=== PATIENT | male | born 2000 | race Caucasian/White ===

== ENCOUNTER 2023-03-17 19:09 | Emergency (ER) | payer MEDICAID, SELFPAY ==
[2023-03-17 19:14] VITALS: BP 135/91; PULSE 130; RESP 24; TEMP 36.9; O2SAT 97; BMI 36.6
--- NOTE | 2023-03-17 19:26 | ED_ITS ---
HPI - Abdominal Pain General Chief Complaint: Abdominal Pain Stated Complaint: Abdominal Pain Time Seen by Provider: 03/17/23 19:18 Source: patient Mode of arrival: walk-in Limitations: no limitations History of Present Illness HPI narrative: 22-year-old male presents to the emergency department for vague abdominal symptoms. It started the night of March 09, about eight days ago. He states he drank alcohol quite heavily that evening which is unusual for him. Since then he's been having waxing and waning nausea and pressure in his upper abdomen. He took some omeprazole but it didn't seem to help much. No vomiting or diarrhea. He states his abdomen really doesn't hurt, he just has pressure. No fever cough chest pain or shortness of breath. . Was noted to be tachycardic at triage but he states he has a history of anxiety and when he comes to the hospital his heart rate goes up. He has not been noticing palpitations at home. Related Data Home Medications Medication Instructions Recorded Confirmed No Known Home Medications 03/17/23 03/17/23 Allergies Allergy/AdvReac Type Severity Reaction Status Date / Time No Known Drug Allergies Allergy Verified 03/17/23 19:20 Review of Systems ROS Narrative A ten point review of systems is negative except as noted above. PFSH PFSH Social History Smoking status: Never smoker Exam Narrative Exam Narrative: Nurses note and vital signs reviewed and patient is not hypoxic. General: The patient appears well and in no apparent distress. Patient is resting comfortably on cart. Skin: Warm, dry, no pallor noted. There is no rash noted. Head: Normocephalic, atraumatic Eye: Normal conjunctiva, no drainage, EOMI. PERRL Ears, Nose, Mouth, and Throat: oral mucosa is moist. Nares patent. Cardiovascular: Regular Rate and Rhythm, tachycardic Respiratory: Patient is in no distress, no accessory muscle use, lungs are clear to auscultation, no wheezing, rales or rhonchi Back: non-tender GI: no tenderness to palpation, no masses appreciated. No rebound, guarding, or rigidity noted. Musculoskeletal: The patient has no evidence of calf tenderness, no pitting edema, symmetrical pulses noted bilaterally Neurological: A&O, normal speech Psychiatric: Cooperative Constitutional Vital Signs, click to edit/add: Last Vital Signs Temp 98.4 F 03/17/23 19:14 Pulse 95 H 03/17/23 20:40 Resp 14 03/17/23 20:40 BP 105/87 03/17/23 20:33 Pulse Ox 100 03/17/23 20:40 O2 Del Method Room Air 03/17/23 19:14 Course Vital Signs Vital signs: Vital Signs Temperature 98.4 F 03/17/23 19:14 Pulse Rate 130 H 03/17/23 19:14 Respiratory Rate 24 03/17/23 19:14 Blood Pressure 135/91 03/17/23 19:14 Pulse Oximetry 97 03/17/23 19:14 Oxygen Delivery Method Room Air 03/17/23 19:14 Temperature 98.4 F 03/17/23 19:14 Pulse Rate 95 H 03/17/23 20:40 Respiratory Rate 14 03/17/23 20:40 Blood Pressure 105/87 03/17/23 20:33 Pulse Oximetry 100 03/17/23 20:40 Oxygen Delivery Method Room Air 03/17/23 19:14 MDM - Abdominal Pain MDM Narrative Medical decision making narrative: blood work is essentially normal other than a very minimally elevated bilirubin of 1.7. Patient informed. He is given a list of PCP to follow up with. He was encouraged to take the omeprazole, my clinical impression that his symptoms are most likely due to GERD. Treatment diagnosis and follow-up were discussed with the patient. Differential Diagnosis Differential diagnosis: Likely abdominal pain, constipation, gastroenteritis and pancreatitis Lab Data Attestation: I reviewed the patient's lab results. Labs: Lab Results 03/17/23 Range/Units 19:25 WBC 10.5 (4.0-11.0) 10^3/uL RBC 5.81 (4.70-6.10) 10^6/uL Hgb 16.7 (14.0-18.0) g/dL Hct 49.8 (42.0-54.0) % MCV 85.7 (80.0-94.0) fL MCH 28.7 (25.9-34.0) pg MCHC 33.5 (29.9-35.2) g/dL RDW 12.8 (11.0-15.0) % Plt Count 317 (150-450) 10^3/uL MPV 9.3 L (9.5-13.5) fL Neut % (Auto) 70.3 (43.0-75.0) % Lymph % (Auto) 22.4 (20.5-60.0) % [place] % (Auto) 5.0 (1.7-12.0) % Eos % (Auto) 1.2 (0.9-7.0) % Baso % (Auto) 0.9 (0.2-2.0) % Neut # (Auto) 7.4 H (1.4-6.5) 10^3/uL Lymph # (Auto) 2.4 (1.2-3.8) 10^3/uL [place] # (Auto) 0.5 (0.3-0.8) 10^3/uL Eos # (Auto) 0.1 (0.0-0.7) 10^3/uL Baso # (Auto) 0.1 (0.0-0.1) 10^3/uL Abs Immat Gran (auto) 0.02 (0.00-0.03) 10^3/uL Imm/Tot Granulo (auto) 0.2 (0.0-0.5) % Sodium 140 (136-145) mmol/L Potassium 3.9 (3.5-5.1) mmol/L Chloride 102 (98-107) mmol/L Carbon Dioxide 23.0 (21.0-32.0) mmol/L Anion Gap 18.9 BUN 11.0 (7.0-18.0) mg/dL Creatinine 1.05 (0.70-1.30) mg/dL Est GFR ( Amer) >60 (>=60) Est GFR (Non-Af Amer) >60 (>=60) BUN/Creatinine Ratio 10.5 Glucose 86 (74-106) mg/dL Calcium 8.9 (8.5-10.1) mg/dL Total Bilirubin 1.7 H (0.2-1.0) mg/dL Direct Bilirubin 0.3 H (0.0-0.2) mg/dL AST 13 L (15-37) U/L ALT 18 (16-63) U/L Alkaline Phosphatase 70 (46-116) U/L Total Protein 8.0 (6.4-8.2) g/dL Albumin 4.1 (3.4-5.0) g/dL Globulin 3.9 g/dL Albumin/Globulin Ratio 1.1 Amylase 44 (25-115) U/L Lipase 46.0 L (73.0-393.0) U/L Discharge Plan Discharge Chief Complaint: Abdominal Pain Clinical Impression: Abdominal pain Patient Disposition: Home, Self-Care Time of Disposition Decision: 20:48 Condition: Good Mode of Transportation: Private Vehicle Prescriptions / Home Meds: No Action No Known Home Medications Stand Alone Forms: Portal Instructions Referrals: Physician,Non-Staff, MD [Primary Care Provider] - 1 week
[2023-03-17] MEDS: 0.9 % SODIUM CHLORIDE 1,000 ML 1000 ML IV (19:41)
[2023-03-17] MEDS: FAMOTIDINE/PF 20 MG/2 ML VIAL IV (19:42)
[2023-03-17] MEDS: ONDANSETRON PF 4 MG/2 ML VIAL IV (19:42)
--- NOTE | 2023-03-17 19:46 | PC.NURSE ---
pt presents to ED because pt states that he was drinking on 03/09. he states afterwards he had n/v and assumed he was just hungover. pt states he has continued to have these symptoms since then as well as cramping/bloating and abnormal bowel movements. pt states he isn't going to the bathroom as often as he normally does and had yellow mucus mixed in with stool. pt did buy otc omeprazole and took some at 2pm today wiht some relief. as well as had tums today.
[2023-03-17 19:54] LABS: Basophils Absolute Auto 0.1 10^3/uL (0.0-0.1); Basophils Percent Auto 0.9 % (0.2-2.0); Eosinophils Absolute Auto 0.1 10^3/uL (0.0-0.7); Eosinophils Percent Auto 1.2 % (0.9-7.0); Hematocrit 49.8 % (42.0-54.0); Hemoglobin 16.7 g/dL (14.0-18.0); Immature Granulocytes Abs Auto 0.02 10^3/uL (0.00-0.03); Immature Granulocytes Pct Auto 0.2 % (0.0-0.5); Lymphocytes Absolute Auto 2.4 10^3/uL (1.2-3.8); Lymphocytes Percent Auto 22.4 % (20.5-60.0); Mean Corpuscular HGB Conc 33.5 g/dL (29.9-35.2); Mean Corpuscular Hemoglobin 28.7 pg (25.9-34.0); Mean Corpuscular Volume 85.7 fL (80.0-94.0); Mean Platelet Volume 9.3 fL (9.5-13.5); Monocytes Absolute Auto 0.5 10^3/uL (0.3-0.8); Neutrophils Absolute Auto 7.4 10^3/uL (1.4-6.5); Neutrophils Percent Auto 70.3 % (43.0-75.0); Platelet Count 317 10^3/uL (150-450); Red Blood Count 5.81 10^6/uL (4.70-6.10); Red Cell Distribution Width 12.8 % (11.0-15.0); White Blood Count 10.5 10^3/uL (4.0-11.0)
[2023-03-17 20:25] LABS: Alanine Aminotransferase 18 U/L (16-63); Albumin Globulin Ratio 1.1; Albumin Level 4.1 g/dL (3.4-5.0); Alkaline Phosphatase 70 U/L (46-116); Amylase 44 U/L (25-115); Anion Gap 18.9; Aspartate Amino Transferase 13 U/L (15-37); BUN Creatinine Ratio 10.5; Bilirubin Direct 0.3 mg/dL (0.0-0.2); Bilirubin Total 1.7 mg/dL (0.2-1.0); Calcium 8.9 mg/dL (8.5-10.1); Chloride 102 mmol/L (98-107); Estimated GFR (African America >60 (>=60); Estimated GFR (Non-African Ame >60 (>=60); Globulin 3.9 g/dL; Glucose 86 mg/dL (74-106); Potassium 3.9 mmol/L (3.5-5.1); Sodium 140 mmol/L (136-145)
[2023-03-17 20:33] VITALS: BP 105/87; PULSE 111; RESP 13
[2023-03-17 20:40] VITALS: PULSE 105; PULSE 95; RESP 14; O2SAT 100
== END 2023-03-17 21:06 | disposition home or self-care (01) ==
PROVIDERS: Emergency Provider Emergency Medicine
DX: R10.9 Unspecified abdominal pain (principal)
CPT/HCPCS: 36415; 80048; 80076; 82150; 83690; 85025; 96374; 96375; 99284

== ENCOUNTER 2023-03-26 23:59 | Emergency (ER) | payer MEDICAID, SELFPAY ==
[2023-03-27 00:02] VITALS: BP 136/82; PULSE 89; RESP 16; TEMP 36.5; O2SAT 99; BMI 38.7
--- NOTE | 2023-03-27 00:10 | PC.NURSE ---
Pt presents to ER for heartburn after eating
--- NOTE | 2023-03-27 00:31 | ED_ITS ---
HPI - Abdominal Pain General Chief Complaint: Abdominal Pain Stated Complaint: ADB PAIN Time Seen by Provider: 03/27/23 00:27 Source: patient Mode of arrival: walk-in History of Present Illness HPI narrative: abdominal pain for 2 weeks. Describes early satiety. States no pain on an empty stomach. increased pain after eating. No nausea or vomiting MD elicited complaint: Reports abdominal pain Related Data Home Medications Medication Instructions Recorded Confirmed No Known Home Medications 03/17/23 03/17/23 Allergies Allergy/AdvReac Type Severity Reaction Status Date / Time No Known Drug Allergies Allergy Verified 03/17/23 19:20 Review of Systems ROS Status of ROS 10 or more systems reviewed and unremarkable except as noted in history and below [facility] Social History Smoking status: Never smoker Exam Constitutional Vital Signs, click to edit/add: Last Vital Signs Temp 97.7 F 03/27/23 00:02 Pulse 89 03/27/23 00:02 Resp 16 03/27/23 00:02 BP 136/82 03/27/23 00:02 Pulse Ox 99 03/27/23 00:02 O2 Del Method Room Air 03/27/23 00:02 Common normals: no apparent distress, average body habitus, oriented x3, no limitations, healthy appearing and alert Eye Common normals: EOMs intact bilaterally and conjunctivae normal Respiratory Common normals: normal respiratory effort, no retractions, no use of accessory muscles and clear to auscultation bilaterally Cardio Common normals: regular rate, regular rhythm, S1 normal heart sound and S2 normal heart sound GI Common normals: Normal to inspection, nondistended, normoactive bowel sounds present, soft to palpation and non-tender Extremity Common normals: normal to inspection and full ROM Neuro Common normals: oriented x3, CN's II-XII intact bilaterally, moves all extremities, no focal motor deficits and no sensory deficits noted Psych Appearance: grossly normal Course Vital Signs Vital signs: Vital Signs Temperature 97.7 F 03/27/23 00:02 Pulse Rate 89 03/27/23 00:02 Respiratory Rate 16 03/27/23 00:02 Blood Pressure 136/82 03/27/23 00:02 Pulse Oximetry 99 03/27/23 00:02 Oxygen Delivery Method Room Air 03/27/23 00:02 Temperature 97.7 F 03/27/23 00:02 Pulse Rate 89 03/27/23 00:02 Respiratory Rate 16 03/27/23 00:02 Blood Pressure 136/82 03/27/23 00:02 Pulse Oximetry 99 03/27/23 00:02 Oxygen Delivery Method Room Air 03/27/23 00:02 MDM - Abdominal Pain MDM Narrative Medical decision making narrative: patient presents complaining of early satiety and abdominal pain after eating. Eating less because of it. Has been taking priosec without benefit. Labs today unchanged from his last visit. Xray of the abdomen is neg. Patient prescribed Bentyl for his abdomen and referred To follow up with his PCP or with Dr jasso Lab Data Labs: Lab Results 03/27/23 Range/Units 01:15 WBC 10.4 (4.0-11.0) 10^3/uL RBC 5.34 (4.70-6.10) 10^6/uL Hgb 15.8 (14.0-18.0) g/dL Hct 46.2 (42.0-54.0) % MCV 86.5 (80.0-94.0) fL MCH 29.6 (25.9-34.0) pg MCHC 34.2 (29.9-35.2) g/dL RDW 12.8 (11.0-15.0) % Plt Count 298 (150-450) 10^3/uL MPV 9.3 L (9.5-13.5) fL Neut % (Auto) 66.6 (43.0-75.0) % Lymph % (Auto) 25.4 (20.5-60.0) % [place] % (Auto) 5.1 (1.7-12.0) % Eos % (Auto) 1.7 (0.9-7.0) % Baso % (Auto) 1.0 (0.2-2.0) % Neut # (Auto) 6.9 H (1.4-6.5) 10^3/uL Lymph # (Auto) 2.6 (1.2-3.8) 10^3/uL [place] # (Auto) 0.5 (0.3-0.8) 10^3/uL Eos # (Auto) 0.2 (0.0-0.7) 10^3/uL Baso # (Auto) 0.1 (0.0-0.1) 10^3/uL Abs Immat Gran (auto) 0.02 (0.00-0.03) 10^3/uL Imm/Tot Granulo (auto) 0.2 (0.0-0.5) % Sodium 139 (136-145) mmol/L Potassium 3.8 (3.5-5.1) mmol/L Chloride 102 (98-107) mmol/L Carbon Dioxide 26.5 (21.0-32.0) mmol/L Anion Gap 14.3 BUN 7.0 (7.0-18.0) mg/dL Creatinine 0.97 (0.70-1.30) mg/dL Est GFR ( Amer) >60 (>=60) Est GFR (Non-Af Amer) >60 (>=60) BUN/Creatinine Ratio 7.2 Glucose 74 (74-106) mg/dL Calcium 8.8 (8.5-10.1) mg/dL Total Bilirubin 1.6 H (0.2-1.0) mg/dL AST 12 L (15-37) U/L ALT 22 (16-63) U/L Alkaline Phosphatase 66 (46-116) U/L Total Protein 7.4 (6.4-8.2) g/dL Albumin 4.1 (3.4-5.0) g/dL Globulin 3.3 g/dL Albumin/Globulin Ratio 1.2 Lipase 53.0 L (73.0-393.0) U/L Discharge Plan Discharge Chief Complaint: Abdominal Pain Clinical Impression: Abdominal pain Patient Disposition: Home, Self-Care Prescriptions / Home Meds: No Action No Known Home Medications Instructions: Abdominal Pain (ED) Additional Instructions: follow up with your doctor or with Dr Jasso Stand Alone Forms: Portal Instructions Referrals: Physician,Non-Staff, MD [Primary Care Provider] - 1 week
--- NOTE | 2023-03-27 00:36 | XR_ITS ---
The [address] [address] Patient Name: STEPHAN KIM MRN: [id number] date: 2000 Sex: M Assigned Patient Location: ER Current Patient Location: ER Accession/Order Number: [id number] Exam Date: 03/27/2023 01:59 Report Date: 03/27/2023 02:17 At the request of: GEOVANNA NO Procedure: XR abdomen min 2V EXAM: XR abdomen min 2V HISTORY: abdominal pain COMPARISON: None. TECHNIQUE: 2 views of the abdomen were obtained. FINDINGS: There is a nonspecific bowel gas pattern without evidence of bowel obstruction. No intraperitoneal free air is seen. The imaged lung bases are clear. No acute osseous abnormality is seen. XR/XR abdomen min 2V IMPRESSION: 1. Nonspecific bowel gas pattern without evidence of bowel obstruction. Electronically authenticated by: Leela CANO Date: 03/27/2023 02:17
[2023-03-27 01:30] LABS: Basophils Absolute Auto 0.1 10^3/uL (0.0-0.1); Eosinophils Absolute Auto 0.2 10^3/uL (0.0-0.7); Eosinophils Percent Auto 1.7 % (0.9-7.0); Hematocrit 46.2 % (42.0-54.0); Hemoglobin 15.8 g/dL (14.0-18.0); Immature Granulocytes Abs Auto 0.02 10^3/uL (0.00-0.03); Immature Granulocytes Pct Auto 0.2 % (0.0-0.5); Lymphocytes Absolute Auto 2.6 10^3/uL (1.2-3.8); Lymphocytes Percent Auto 25.4 % (20.5-60.0); Mean Corpuscular HGB Conc 34.2 g/dL (29.9-35.2); Mean Corpuscular Hemoglobin 29.6 pg (25.9-34.0); Mean Corpuscular Volume 86.5 fL (80.0-94.0); Mean Platelet Volume 9.3 fL (9.5-13.5); Monocytes Absolute Auto 0.5 10^3/uL (0.3-0.8); Monocytes Percent Auto 5.1 % (1.7-12.0); Neutrophils Absolute Auto 6.9 10^3/uL (1.4-6.5); Neutrophils Percent Auto 66.6 % (43.0-75.0); Platelet Count 298 10^3/uL (150-450); Red Blood Count 5.34 10^6/uL (4.70-6.10); Red Cell Distribution Width 12.8 % (11.0-15.0); White Blood Count 10.4 10^3/uL (4.0-11.0)
[2023-03-27 03:11] LABS: Alanine Aminotransferase 22 U/L (16-63); Albumin Globulin Ratio 1.2; Albumin Level 4.1 g/dL (3.4-5.0); Alkaline Phosphatase 66 U/L (46-116); Anion Gap 14.3; Aspartate Amino Transferase 12 U/L (15-37); BUN Creatinine Ratio 7.2; Bilirubin Total 1.6 mg/dL (0.2-1.0); Calcium 8.8 mg/dL (8.5-10.1); Carbon Dioxide 26.5 mmol/L (21.0-32.0); Chloride 102 mmol/L (98-107); Estimated GFR (African America >60 (>=60); Estimated GFR (Non-African Ame >60 (>=60); Globulin 3.3 g/dL; Glucose 74 mg/dL (74-106); Potassium 3.8 mmol/L (3.5-5.1); Sodium 139 mmol/L (136-145); Total Protein 7.4 g/dL (6.4-8.2)
== END 2023-03-27 03:44 | disposition home or self-care (01) ==
PROVIDERS: Emergency Provider Internal Medicine
DX: R10.9 Unspecified abdominal pain (principal)
CPT/HCPCS: 36415; 74019; 80053; 83690; 85025; 99284

== ENCOUNTER 2023-05-22 13:05 | Outpatient (OUT) | payer MEDICAID, SELFPAY ==
[2023-05-22 13:22] LABS: Basophils Absolute Auto 0.1 10^3/uL (0.0-0.1); Basophils Percent Auto 0.9 % (0.2-2.0); Eosinophils Absolute Auto 0.3 10^3/uL (0.0-0.7); Eosinophils Percent Auto 3.7 % (0.9-7.0); Hematocrit 46.9 % (42.0-54.0); Hemoglobin 15.5 g/dL (14.0-18.0); Immature Granulocytes Abs Auto 0.03 10^3/uL (0.00-0.03); Immature Granulocytes Pct Auto 0.4 % (0.0-0.5); Lymphocytes Absolute Auto 3.3 10^3/uL (1.2-3.8); Lymphocytes Percent Auto 41.4 % (20.5-60.0); Mean Corpuscular Volume 87.8 fL (80.0-94.0); Mean Platelet Volume 9.4 fL (9.5-13.5); Monocytes Absolute Auto 0.5 10^3/uL (0.3-0.8); Monocytes Percent Auto 5.7 % (1.7-12.0); Neutrophils Absolute Auto 3.8 10^3/uL (1.4-6.5); Neutrophils Percent Auto 47.9 % (43.0-75.0); Platelet Count 301 10^3/uL (150-450); Red Blood Count 5.34 10^6/uL (4.70-6.10); Red Cell Distribution Width 13.7 % (11.0-15.0); White Blood Count 7.9 10^3/uL (4.0-11.0)
[2023-05-22 13:33] LABS: Estimated Average Glucose 103 mg/dL; Glycohemoglobin A1C 5.2 % (4.5-6.2)
[2023-05-22 14:01] LABS: Free T4 1.16 ng/dL (0.76-1.46)
[2023-05-22 14:10] LABS: Alanine Aminotransferase 26 U/L (16-63); Albumin Level 3.7 g/dL (3.4-5.0); Alkaline Phosphatase 66 U/L (46-116); Anion Gap 10.8; Aspartate Amino Transferase 15 U/L (15-37); BUN Creatinine Ratio 11.1; Bilirubin Total 1.2 mg/dL (0.2-1.0); Calcium 9.1 mg/dL (8.5-10.1); Carbon Dioxide 29.9 mmol/L (21.0-32.0); Chloride 103 mmol/L (98-107); Estimated GFR (African America >60 (>=60); Estimated GFR (Non-African Ame >60 (>=60); Free T3 3.06 pg/mL (2.18-3.98); Globulin 3.7 g/dL; Glucose 86 mg/dL (74-106); Potassium 3.7 mmol/L (3.5-5.1); Sodium 140 mmol/L (136-145); Thyroid Stimulating Hormone 2.261 uIU/mL (0.358-3.740); Total Protein 7.4 g/dL (6.4-8.2)
== END 2023-05-22 13:06 | disposition home or self-care (01) ==
LOC: LAB 13:07
PROVIDERS: PCP Internal Medicine; Visit Provider Internal Medicine
DX: R63.4 Abnormal weight loss (principal); R10.13 Epigastric pain; R17 Unspecified jaundice
CPT/HCPCS: 36415; 80053; 83036; 84436; 84439; 84443; 84481; 85025

== ENCOUNTER 2023-06-11 07:35 | Outpatient (OUT) | payer MEDICAID, SELFPAY ==
--- NOTE | 2023-06-11 08:05 | US_ITS ---
The [address] [address] Patient Name: STEPHAN KIM MRN: [id number] date: 2000 Sex: M Assigned Patient Location: US Current Patient Location: US Accession/Order Number: [id number] Exam Date: 06/11/2023 08:08 Report Date: 06/11/2023 09:06 At the request of: SHAIKH SESAR Procedure: US right upper quadrant EXAM: US right upper quadrant HISTORY: . Total bilirubin elevated R17 . COMPARISON: None. TECHNIQUE: Grayscale and color imaging was performed FINDINGS: The liver appears normal in size. No masses are noted. Color-flow is noted in the portal and hepatic veins. Scanning of the gallbladder demonstrates echogenic foci within the gallbladder with shadowing consistent with gallstones. No gallbladder wall thickening is noted. Patient had no pain upon scanning over the gallbladder. Common bile duct measured 2 mm. The pancreas appears normal. Right kidney measures 10.5 x 4.9 x 5.2 cm. No solid renal cortical masses or hydronephrosis is noted. Color-flow is noted. No fluid is noted in the right upper quadrant. US/US right upper quadrant IMPRESSION: 1. Cholelithiasis. No gallbladder wall thickening is noted. Patient had no pain upon scanning over the gallbladder. 2. The remainder of the right upper quadrant was unremarkable. Electronically authenticated by: KAYCE PONCE Date: 06/11/2023 09:06
== END 2023-06-11 07:36 | disposition home or self-care (01) ==
LOC: US 07:35
PROVIDERS: PCP Internal Medicine; Visit Provider Internal Medicine
DX: R17 Unspecified jaundice (principal); K80.20 Calculus of gallbladder without cholecystitis without obstruction
CPT/HCPCS: 76705